=== PATIENT | female | born 1975 ===

== ENCOUNTER 2017-11-29 14:24 | Emergency (ER) | payer MEDICAID ==
[2017-11-29 14:43] VITALS: RESP 18; BMI 36.1
[2017-11-29] MEDS ORDERED: Sodium Chloride 0.9% 1,000 ML IV STA (14:50)
--- NOTE | 2017-11-29 14:51 | ED PDOC ---
Arrival/HPI - General Chief Complaint: Palpitations Time Seen by Provider: 11/29/17 14:49 Historian: Patient - History of Present Illness Narrative History of Present Illness (Text): 11/29/17 14:51 42 year old female, visiting from [place], with no significant past medical history, presents to the Emergency Department complaining of palpitations since two days. Patient states symptoms initially emerged secondary to [employer] supplements due to high caffeine intake. Upon recommendation by her PMD, patient soon discontinued the supplements and informed improved symptoms. However, the symptoms reappeared 2 days ago prompting her to present to the Emergency Department for evaluation. Patient states she usually drinks small quantity of coffee but denies drinking any today. Patient denies any fever, chills, nausea, vomiting, diarrhea, abdominal pain, chest pain, shortness of breath, cough, headache, dizziness, neck pain, back pain, or any other complaints. Time/Duration: < week (2 days) Symptom Onset: Gradual Symptom Course: Unchanged Activities at Onset: Light Context: Home Past Medical History - Provider Review Nursing Documentation Reviewed: Yes - Infectious Disease Hx of Infectious Diseases: None - Cardiac Hx Cardiac Disorders: No - Pulmonary Hx Respiratory Disorders: No - Neurological Hx Neurological Disorder: No - HEENT Hx HEENT Disorder: No - Renal Hx Renal Disorder: No - Endocrine/Metabolic Hx Endocrine Disorders: No - Hematological/Oncological Hx Blood Disorders: No - Integumentary Hx Dermatological Disorder: No - Musculoskeletal/Rheumatological Hx Musculoskeletal Disorders: No - Gastrointestinal Hx Gastroesophageal Reflux: Yes - Genitourinary/Gynecological Hx Genitourinary Disorders: No - Psychiatric Hx Psychophysiologic Disorder: No Hx Substance Use: No - Surgical History Hx Cholecystectomy: Yes - Anesthesia Hx Anesthesia: Yes Hx Anesthesia Reactions: No Hx Malignant Hyperthermia: No Family/Social History - Physician Review Nursing Documentation Reviewed: Yes Family/Social History: No Known Family HX Smoking Status: Never Smoked Hx Alcohol Use: No Hx Substance Use: No Allergies/Home Meds Allergies/Adverse Reactions: Allergies codeine Allergy (Verified 11/29/17 14:43) SWELLING iodine Allergy (Verified 11/29/17 14:43) SWELLING Home Medications: Home Meds Medication Instructions Recorded Confirmed No Known Home Med 11/29/17 11/29/17 Review of Systems - Physician Review All systems were reviewed & negative as marked: Yes - Review of Systems Constitutional: absent: Fevers Respiratory: absent: SOB, Cough Cardiovascular: Palpitations. absent: Chest Pain Gastrointestinal: absent: Abdominal Pain, Diarrhea, Nausea, Vomiting Musculoskeletal: absent: Back Pain, Neck Pain Neurological: absent: Headache, Dizziness Physical Exam Vital Signs Reviewed: Yes Vital Signs Temp Pulse Resp BP Pulse Ox 11/29/17 17:31 98.6 F 99 H 18 124/74 99 11/29/17 16:11 84 18 118/73 98 11/29/17 14:43 98.8 F 113 H 18 116/72 98 Temperature: Afebrile Blood Pressure: Normal Pulse: Tachycardic Respiratory Rate: Normal Appearance: Positive for: Well-Appearing, Non-Toxic, Comfortable Pain Distress: None Mental Status: Positive for: Alert and Oriented X 3 - Systems Exam Head: Present: Atraumatic, Normocephalic Pupils: Present: PERRL Extroacular Muscles: Present: EOMI Conjunctiva: Present: Normal Mouth: Present: Moist Mucous Membranes Neck: Present: Normal Range of Motion Respiratory/Chest: Present: Clear to Auscultation, Good Air Exchange. No: Respiratory Distress, Accessory Muscle Use Cardiovascular: Present: Regular Rate and Rhythm, Normal S1, S2. No: Murmurs Abdomen: No: Tenderness, Distention, Peritoneal Signs Back: Present: Normal Inspection Upper Extremity: Present: Normal Inspection. No: Cyanosis, Edema Lower Extremity: Present: Normal Inspection. No: Edema Neurological: Present: GCS=15, CN II-XII Intact, Speech Normal Skin: Present: Warm, Dry, Normal Color. No: Rashes Psychiatric: Present: Alert, Oriented x 3, Normal Insight, Normal Concentration Medical Decision Making ED Course and Treatment: 11/29/17 15:01 Impression: 42 year old female presents to the Emergency Department for palpitations. Plan: -- EKG -- Labs -- IV Fluids -- Reassess and disposition Prior Visits: Notes and results from previous visits were reviewed. Progress Notes: 11/29/17 14:50 EKG: Ordered, reviewed, and independently interpreted the EKG. Rate : 116 BPM Rhythm : Sinus Tachycardia Interpretation : No ST-segment elevations or depressions, no T-wave inversions, normal intervals. - Lab Interpretations Lab Results: 11/29/17 15:57 11/29/17 15:57 Lab Results 11/29/17 15:57: Total T3 1.15, TSH 3rd Generation 1.05 11/29/17 15:57: Sodium 140, Potassium 4.6, Chloride 102, Carbon Dioxide 27, Anion Gap 16, BUN 14, Creatinine 0.8, Est GFR ( Amer) > 60, Est GFR (Non- Af Amer) > 60, Random Glucose 110, Calcium 9.4, Magnesium 2.1, Total Bilirubin 0.5, AST 32, ALT 36, Alkaline Phosphatase 68, Lactate Dehydrogenase 498, Total Creatine Kinase 64, Troponin I < 0.01, Total Protein 8.1, Albumin 4.5, Globulin 3.7, Albumin/Globulin Ratio 1.2 11/29/17 15:57: D-Dimer, Quantitative 294 H 11/29/17 15:57: WBC 9.4, RBC 4.81, Hgb 14.0, Hct 40.9, MCV 85.0, MCH 29.1, MCHC 34.2, RDW 13.0, Plt Count 308, MPV 11.4 H, Gran % 75.8 H, Lymph % (Auto) 17.8 L , [place] % (Auto) 5.1, Eos % (Auto) 1.0 L, Baso % (Auto) 0.3, Gran # 7.16 H, Lymph # (Auto) 1.7, [place] # (Auto) 0.5, Eos # (Auto) 0.1, Baso # (Auto) 0.03 - EKG Interpretation Interpreted by ED Physician: Yes Type: 12 lead EKG - Medication Orders Current Medication Orders: Discontinued Medications Sodium Chloride (Sodium Chloride 0.9%) 1,000 mls @ 999 mls/hr IV .Q1H1M STA Stop: 11/29/17 15:50 Last Admin: 11/29/17 15:41 Dose: 999 mls/hr eMAR Start Stop Document 11/29/17 15:41 HI (Rec: 11/29/17 15:41 KS [id number]) Intravenous Solution Start Date 11/29/17 Start Time 15:35 - Scribe Statement The provider has reviewed the documentation as recorded by the Scribe Pavel Wilson. All medical record entries made by the Scribe were at my direction and personally dictated by me. I have reviewed the chart and agree that the record accurately reflects my personal performance of the history, physical exam, medical decision making, and the department course for this patient. I have also personally directed, reviewed, and agree with the discharge instructions and disposition. Disposition/Present on Arrival - Present on Arrival Any Indicators Present on Arrival: No History of DVT/PE: No History of Uncontrolled Diabetes: No Urinary Catheter: No History of Decub. Ulcer: No History Surgical Site Infection Following: None - Disposition Have Diagnosis and Disposition been Completed?: Yes Diagnosis: Anxiety Disposition: HOME/ ROUTINE Disposition Time: 16:00 Condition: IMPROVED Discharge Instructions (ExitCare): Anxiety, Adult (DC) Additional Instructions: HARRY FINLEY, thank you for letting us take care of you today. The emergency medical care you received today was directed at your acute symptoms. If you were prescribed any medication, please fill it and take as directed. It may take several days for your symptoms to resolve. Return to the Emergency Department if your symptoms worsen, do not improve, or if you have any other problems. Please contact your doctor or call one of the physicians/clinics you have been referred to that are listed on the Patient Visit Information form that is included in your discharge packet. Bring any paperwork you were given at discharge with you along with any medications you are taking to your follow up visit. Our treatment cannot replace ongoing medical care by a primary care provider outside of the emergency department. Thank you for allowing the [facility] team to be part of your care today. Continue to stay hydrated throughout the day. Follow up with our clinic this week for re-evaluation and further management. Referrals: [facility] [Outside] - Follow up with primary Deisi Morocho MD [Medical Doctor] - Follow up with primary Forms: [employer] (Lithuanian)
[2017-11-29 16:09] LABS: BASO # 0.03 K/mm3 (0.0-2.0); BASO % 0.3 % (0.0-3.0); EOS # 0.1 (0.0-0.7); GRAN # 7.16 (1.4-6.5); GRAN % 75.8 % (50.0-68.0); LYMPH # 1.7 (1.2-3.4); LYMPH % 17.8 % (22.0-35.0); MEAN CORPUSCULAR HEMOGLOBIN 29.1 pg (25.0-35.0); MEAN CORPUSCULAR HGB CONC 34.2 g/dl (31.0-37.0); MEAN PLATELET VOLUME 11.4 fl (7.0-11.0); MONO # 0.5 (0.1-0.6); MONO % 5.1 % (1.0-6.0); RBC 4.81 10^6/uL (3.5-6.1); WHITE BLOOD COUNT 9.4 10^3/ul (4.5-11.0)
[2017-11-29 16:20] LABS: ALB/GLOB RATIO 1.2 (1.1-1.8); ALBUMIN 4.5 g/dL (3.0-4.8); CALCIUM 9.4 mg/dL (8.4-10.5); GFR AFRICAN-AMERICAN > 60; GFR NON-AFRICAN AMERICAN > 60
[2017-11-29 16:26] LABS: ALT/SGPT 36 U/L (7-56); AST/SGOT 32 U/L (14-36); BLOOD UREA NITROGEN 14 mg/dL (7-21)
[2017-11-29 16:32] LABS: TROPONIN I < 0.01 ng/mL
[2017-11-29 16:51] LABS: T3 1.15 ng/mL (0.97-1.69)
[2017-11-29 18:11] VITALS: BP 124/74; PULSE 99; TEMP 98.6; O2SAT 99
--- NOTE | 2017-11-29 20:54 | CARD ---
APPROVED REPORT Date of service: 11/29/2017 EKG Measurement Heart [id number] <Conclusion> Sinus tachycardia Otherwise normal ECG
== END 2017-11-29 17:31 | disposition home or self-care (01) ==
LOC: ED 14:24
DX: F41.9 Anxiety disorder, unspecified (principal)
CPT/HCPCS: 80053; 82550; 83615; 83735; 84443; 84480; 84484; 85025; 85378; 93005; 99285; J7030